=== PATIENT | male | born 1990 | race Caucasian/White ===

== ENCOUNTER 2016-07-17 18:38 | Emergency (ER) | payer SELFPAY ==
[2016-07-17 19:15] VITALS: BP 129/80; PULSE 82; TEMP 98.7; BMI 26.6
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
== END 2016-07-17 20:27 | disposition home or self-care (01) ==
LOC: FER 18:38
DX: S39.012A Strain of muscle, fascia and tendon of lower back, initial encounter (principal); X58.XXXA Exposure to other specified factors, initial encounter; Y93.9 Activity, unspecified; Y92.9 Unspecified place or not applicable; F17.210 Nicotine dependence, cigarettes, uncomplicated; J45.909 Unspecified asthma, uncomplicated; Z87.442 Personal history of urinary calculi
CPT/HCPCS: 72100-TC; 99282-25

== ENCOUNTER 2018-12-11 04:43 | Emergency (ER) | payer OTHER ==
[2018-12-11 05:24] VITALS: TEMP 98.2; BMI 27.3
[2018-12-11] MEDS ORDERED: IBUPROFEN 600 MG TABLET (FP) PO ONE ×2 (06:23→06:25)
[2018-12-11] MEDS ORDERED: METHOCARBAMOL 500 MG TABLET PO ONE (06:23)
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
[2018-12-11] MEDS ORDERED: METHOCARBAMOL 500 MG TABLET ONE (06:25)
[2018-12-11 06:33] VITALS: BP 115/64; PULSE 86
== END 2018-12-11 06:30 | disposition home or self-care (01) ==
LOC: JER 04:43
DX: M54.2 Cervicalgia (principal); M54.5 Low back pain; M25.512 Pain in left shoulder; M25.561 Pain in right knee; V53.5XXA Driver of pick-up truck or van injured in collision with car, pick-up truck or van in traffic accident, initial encounter; Y92.488 Other paved roadways as the place of occurrence of the external cause; Y93.89 Activity, other specified; Y99.8 Other external cause status
CPT/HCPCS: 99282-25

== ENCOUNTER 2019-03-29 18:54 | Emergency (ER) | payer OTHER ==
--- NOTE | 2019-03-29 19:12 | PDOC ---
Rapid Medical Evaluation Time Seen by Provider: 03/29/19 19:07 Medical Evaluation: Allergies Allergy/AdvReac Type Severity Reaction Status Date / Time No Known Allergies Allergy Verified 12/11/18 05:24 03/29/19 19:07 I have performed a brief in-person evaluation of this patient. The patient presents with a chief complaint of: R low back vs flank pain x 1 week, worse with movement and coughing, denies urinary sxs, remote hx of kidney stones. also c/o of L wrist pain Pertinent physical exam findings: no R CVAT I have ordered the following: nothing The patient will proceed to the ED for further evaluation. Discharge Disposition - Diagnosis Back pain, Wrist pain, left - Referrals - Patient Instructions - Post Discharge Activity
[2019-03-29 19:13] VITALS: BP 128/75; PULSE 98; TEMP 97.5; BMI 30.7
--- NOTE | 2019-03-29 20:10 | PDOC ---
History of Present Illness - General Chief Complaint: Pain, Acute Stated Complaint: R/SIDED BACK PAIN/L/WRIST/INJURY Time Seen by Provider: 03/29/19 19:07 - History of Present Illness Initial Comments: 03/29/19 20:08 28-year-old male without comorbidities presents for evaluation of left wrist pain after a fall 2 weeks ago and right-sided flank pain and concern for kidney stones as he suffered them passed no systemic symptoms no dysuria Past History - Past Medical History Allergies/Adverse Reactions: Allergies Allergy/AdvReac Type Severity Reaction Status Date / Time No Known Allergies Allergy Verified 12/11/18 05:24 Home Medications: Ambulatory Orders No Home Medications 0 dose .ROUTE UTDICT 10/18/12 Ibuprofen [Motrin -] 600 mg PO TID #21 tablet 12/11/18 Methocarbamol [Robaxin -] 500 mg PO TID #21 tablet 12/11/18 Asthma: Yes COPD: No Kidney Stones: Yes - Immunization History Immunization Up to Date: Yes - Psycho Social/Smoking Cessation Hx Smoking Status: Yes Smoking History: Never smoked Have you smoked in the past 12 months: No Number of Cigarettes Smoked Daily: 2 Information on smoking cessation initiated: No 'Breaking Loose' booklet given: 07/17/16 Hx Alcohol Use: No Drug/Substance Use Hx: No Substance Use Type: Marijuana Review of Systems - Review of Systems Constitutional: No: Fever Musculoskeletal: Yes: Joint Pain *Physical Exam - Vital Signs Last Vital Signs Temp Pulse Resp BP Pulse Ox 97.5 F L 98 H 20 128/75 98 03/29/19 19:08 03/29/19 19:08 03/29/19 19:08 03/29/19 19:08 03/29/19 19:08 - Physical Exam 03/29/19 20:08 GENERAL: The patient is awake, alert, and fully oriented, in no acute distress. HEAD: Normal with no signs of trauma. EYES: sclera anicteric, conjunctiva clear. ENT: Ears normal tympanic membranes normal oropharynx clear uvula midline NECK: Normal range of motion LUNGS: Breath sounds equal, clear to auscultation bilaterally. No wheezes, and no crackles. HEART: S1 and S2 without murmur, rub or gallop. ABDOMEN: Soft, nontender, normoactive bowel sounds. No guarding, no rebound. No masses. No CVA tenderness EXTREMITIES: Normal range of motion, no edema. No clubbing or cyanosis. No cords, erythema, or tenderness. NEUROLOGICAL: Cranial nerves II through XII grossly intact. Normal speech, normal gait. PSYCH: Normal mood, normal affect. SKIN: Warm, Dry, normal turgor, no rashes or lesions noted. Left foot skin color temperature normal full range of motion in all planes of the wrist elbow forearm and fingers. No tenderness about the distal radius snuffbox distal ulna. Mild tenderness about the area of the TFCC. Neurovascular intact no gross sensorimotor deficits Medical Decision Making - Medical Decision Making 03/29/19 20:09 Resplinted follow-up with hand surgery suspected TFCC tear, concern for kidney stones no clinical indication for CAT scan today follow-up with urology Discharge - Discharge Information Problems reviewed: Yes Clinical Impression/Diagnosis: Back pain, Wrist pain, left Condition: Stable Disposition: HOME - Admission No - Follow up/Referral Referrals: Vandana Wolf MD [Primary Care Provider] - Gianfranco Horne MD [Staff Physician] - Demario Rice MD [Staff Physician] - - Patient Discharge Instructions Additional Instructions: Avoid heavy lifting with your wrist pain. Please without fail follow-up with orthopedic surgery in 2 to 3 days for further evaluation and treatment options. And follow-up with urology for concern of kidney stones. Both follow-up should be done within the next 2 to 3 days. - Post Discharge Activity
== END 2019-03-29 20:31 | disposition home or self-care (01) ==
LOC: JERFT 18:54
DX: M25.532 Pain in left wrist (principal); M54.9 Dorsalgia, unspecified; Z72.0 Tobacco use; J45.909 Unspecified asthma, uncomplicated
CPT/HCPCS: 99281-25

== ENCOUNTER 2019-11-07 17:57 | Emergency (ER) | payer OTHER ==
[2019-11-07] MEDS ORDERED: IBUPROFEN 600 MG TABLET (FP) PO ONE ×2 (18:06→18:38)
--- NOTE | 2019-11-07 18:06 | PDOC ---
Rapid Medical Evaluation Chief Complaint: Injury Time Seen by Provider: 11/07/19 18:04 Medical Evaluation: Allergies Allergy/AdvReac Type Severity Reaction Status Date / Time No Known Allergies Allergy Verified 12/11/18 05:24 11/07/19 18:04 Pt presents with R elbow pain after falling on the arm one week ago. Pt is R hand dominant Exam: TTP of the medial epicondyle Orders: x-ray, motrin Pt to proceed to the ER for further evaluation Discharge Disposition - Diagnosis Elbow pain, right - Referrals - Patient Instructions - Post Discharge Activity
[2019-11-07 18:08] VITALS: BP 129/78; PULSE 92; TEMP 98.5; BMI 27.4
--- NOTE | 2019-11-07 18:44 | PDOC ---
History of Present Illness - General Chief Complaint: Injury Stated Complaint: INJURY/ELBOW/RADIATING TO ENTIRE ARM Time Seen by Provider: 11/07/19 18:04 History Source: Patient Exam Limitations: No Limitations - History of Present Illness Initial Comments: 11/07/19 18:41 HISTORY OF PRESENT ILLNESS: 29-year-old male denies medical history presents emergency department for evaluation of right elbow pain x1 week status post fall onto elbow. 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 Patient reports has been taking [id number] pain medication as well as ice but reports when he sleeps on his elbow he has increased pain. Patient is concerned for prolonged nerve damage if not treated. No recent travel or sick contacts. PAST MEDICAL HISTORY: Denies past medical history SURGICAL HISTORY: Denies ALLERGIES: No known drug allergies REVIEW OF SYSTEMS General/Constitutional: Denies fever or chills. Denies weakness, weight change. HEENT: Denies change in vision. Denies ear pain or discharge. Denies sore throat. Cardiovascular: Denies chest pain or shortness of breath. Respiratory: Denies cough, wheezing, or hemoptysis. Gastrointestinal: Denies nausea, vomiting, diarrhea or constipation. Denies rectal bleeding. Genitourinary: Denies dysuria, frequency, or change in urination. Musculoskeletal: See HPI Skin and breasts: Denies rash or easy bruising. Neurologic: Denies headache, vertigo, loss of consciousness, or loss of sensation. Psychiatric: Denies depression or anxiety. Endocrine: Denies increased thirst. Denies abnormal weight change. Hematologic/Lymphatic: Denies anemia, easy bleeding, or history of blood clots. Allergic/Immunologic: Denies hives or skin allergy. Denies latex allergy. PHYSICAL EXAM General Appearance: Well-appearing, appropriately dressed. No apparent distress, no intoxication. Vascular Pulses: Radial (R): 2+, radial (L): 2+ Musculoskeletal/Extremities: Normal inspection. FROM of all extremities with pronation and supination of the right wrist, normal capillary refill. Tenderness over the right medial epicondyles. No deformity, crepitus, step-off present upon palpation. Neurovascularly intact. Integumentary: Appropriate color, dry, warm. 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 Fully oriented, alert. Appropriate mood/affect. Motor strength 5/5. No appreciable EOM palsy, facial droop or sensory deficit. Past History - Medical History Allergies/Adverse Reactions: Allergies Allergy/AdvReac Type Severity Reaction Status Date / Time No Known Allergies Allergy Verified 12/11/18 05:24 Home Medications: Ambulatory Orders No Home Medications 0 dose .ROUTE UTDICT 10/18/12 Ibuprofen [Motrin -] 600 mg PO TID #21 tablet 12/11/18 Methocarbamol [Robaxin -] 500 mg PO TID #21 tablet 12/11/18 Asthma: Yes COPD: No Kidney Stones: Yes - Immunization History Immunization Up to Date: Yes - Psycho-Social/Smoking History Smoking Status: Yes Smoking History: Never smoked Have you smoked in the past 12 months: No Number of Cigarettes Smoked Daily: 2 Information on smoking cessation initiated: No 'Breaking Loose' booklet given: 07/17/16 - Substance Abuse Hx (Audit-C & DAST Scrn) How often the patient has a drink containing alcohol: Never Score: In Men: 4 or > Positive; In Women: 3 or > Positive: 0 Screen Result (Pos requires Nsg. Audit-10AR): Negative In the last yr the pt used illegal drug/Rx for NonMed reason: No Score: Yes response is considered Positive: 0 Screen Result (Positive result requires Nsg. DAST-10): Negative *Physical Exam - Vital Signs Last Vital Signs Temp Pulse Resp BP Pulse Ox 98.5 F 92 H 17 129/78 99 11/07/19 18:04 11/07/19 18:04 11/07/19 18:04 11/07/19 18:04 11/07/19 18:04 Medical Decision Making - Medical Decision Making 11/07/19 18:43 A/P: 29-year-old male with right elbow pain status post fall 1 week ago Physical exam notable for tenderness over the right medial epicondyles. Full flexion-extension of the elbow noted without difficulty. Able to fully pronate and supinate the wrist passively. Neurovascularly intact Orders per [facility] X-rays as read by me: No acute fractures or dislocations are present. Discharge home with orthopedic follow-up. I discussed the physical exam findings, ancillary test results and final diagnoses with the patient. I answered all of the patient's questions. The patient was satisfied with the care received and felt comfortable with the discharge plan and treatment plan. The patient will call their primary care physician within 24 hours to arrange follow-up and will return to the Emergency Department with any new, persistent or worsening symptoms. Portions of this note have been documented using voice recognition software. As a result, errors may occur in the rounding machine tender process. Effort has been made to correct all grammatical and rounding machine tender error, but some may have been missed which may produce sporadic inaccurate rounding machine tender or nonsensical phrases. Discharge - Discharge Information Problems reviewed: Yes Clinical Impression/Diagnosis: Elbow pain, right Condition: Stable Disposition: HOME - Admission No - Follow up/Referral Referrals: Vandana Wolf MD [Primary Care Provider] - Demario Rice MD [Staff Physician] - - Patient Discharge Instructions Additional Instructions: [email or web address] You be given a referral for an orthopedist. Call to schedule appointment for reevaluation of your pain. Your emergency department visit is incomplete until you follow-up with your regular doctor. Take Tylenol 2-500 mg tablets every 6 hours as needed for pain. Take Motrin 3-200 mg tablets every 6 hours as needed for pain. These medications do not require a prescription as they are [id number]. Apply ice to affected areas to help relieve pain. Do not leave ice on for more than 20 minutes at a time. Return to the emergency department for any new or worsening symptoms. Thank you very much for choosing us to provide your emergent health care needs. - Post Discharge Activity Work/Back to School Note: Back to Work
== END 2019-11-07 19:06 | disposition home or self-care (01) ==
LOC: JER 17:57 → JERFT 17:57
DX: M25.521 Pain in right elbow (principal)
CPT/HCPCS: 73070-TC-RT-FY; 99283-25

== ENCOUNTER 2022-08-31 22:54 | Emergency (ER) | payer OTHER ==
[~2022-08-31 22:54] MED LIST: LIDOCAINE PATCH REMOVAL MC SCH
[2022-08-31 23:00] VITALS: BP 146/91; PULSE 102; RESP 18; TEMP 99.1; BMI 26.6
[2022-08-31] MEDS ORDERED: IBUPROFEN 600 MG TABLET (FP) PO ONE ×2 (23:28→23:33)
[2022-08-31] MEDS ORDERED: LIDOCAINE 5% TOPICAL PATCH TP ONE (23:58)
[2022-08-31] MEDS ORDERED: LIDOCAINE 5% TOPICAL PATCH ONE (23:59)
== END 2022-09-01 00:13 | disposition home or self-care (01) ==
LOC: FER 22:54
DX: M54.50 Low back pain, unspecified (principal); M54.2 Cervicalgia; M25.511 Pain in right shoulder; M62.830 Muscle spasm of back; S13.4XXA Sprain of ligaments of cervical spine, initial encounter; V43.52XA Car driver injured in collision with other type car in traffic accident, initial encounter; Y93.I9 Activity, other involving external motion
CPT/HCPCS: 72040-TC; 72100-TC-FY; 99283-25

== ENCOUNTER 2023-04-13 06:57 | Emergency (ER) | payer OTHER ==
[2023-04-13 07:43] VITALS: TEMP 98; BMI 27.0
[2023-04-13] MEDS ORDERED: FENTANYL CITRATE/PF 50 MCG/ML VIAL ONE (07:48)
[2023-04-13 08:28] LABS: BASO % 1.3 % (0-2.0); EOS % 5.5 % (0-4.5); HEMATOCRIT 43.5 % (35.4-49); HEMOGLOBIN 14.8 GM/dL (11.7-16.9); LYMPH % 21.9 % (8-40); MCH 30.6 pg (25.7-33.7); MCHC 34.1 g/dl (32.0-35.9); MEAN CELL VOLUME 89.7 fl (80-96); MEAN PLT VOLUME 6.9 fl (7.5-11.1); MONO % 7.8 % (3.8-10.2); NEUT % 63.5 % (42.8-82.8); PLATELET COUNT 297 10^3/uL (134-434); RBC 4.85 M/mm3 (4.00-5.60); RDW 12.5 % (11.9-15.9); WHITE BLOOD COUNT 9.9 K/mm3 (4.0-10.0)
[2023-04-13 08:33] LABS: INR 1.01 (0.83-1.09); PROTHROMBIN TIME (PATIENT) 11.7 SEC (9.7-13.0)
[2023-04-13 08:36] LABS: ACTIVATED PTT 27.4 SECONDS (25.2-36.5)
[2023-04-13 09:12] LABS: POTASSIUM 3.6 mmol/L (3.5-5.1)
[2023-04-13 09:14] LABS: CALCIUM 8.8 mg/dL (8.5-10.1)
[2023-04-13 09:15] LABS: ALBUMIN 4.1 g/dl (3.4-5.0); BLOOD UREA NITROGEN 14.3 mg/dL (7-18)
[2023-04-13 09:18] LABS: CREATININE 0.8 mg/dL (0.55-1.3)
[2023-04-13 09:19] LABS: BILIRUBIN,TOTAL 1.2 mg/dL (0.2-1); TOT PROT 7.9 g/dl (6.4-8.2)
[2023-04-13] MEDS ORDERED: morphine CARPU-JECT 4 MG/1 ML DISP.SYRIN IVPUSH ONE (09:39)
[2023-04-13] MEDS ORDERED: morphine SULFATE 4 MG/ML VIAL ONE (09:42)
[2023-04-13] MEDS ORDERED: ONDANSETRON 4 MG/2 ML VIAL IVPUSH ONE (10:08)
[2023-04-13] MEDS ORDERED: ONDANSETRON 4 MG/2 ML VIAL ONE ×2 (10:09→10:17)
[2023-04-13 10:25] VITALS: PULSE 92; RESP 17
[2023-04-13 11:28] VITALS: BP 126/93
== END 2023-04-13 10:27 | disposition short-term general hospital (02) ==
LOC: JER 06:57
PROC: 3E033GC Introduction of Other Therapeutic Substance into Peripheral Vein, Percutaneous Approach (ICD-10-PCS; principal; 2023-04-13)
PROC: 3E033GC Introduction of Other Therapeutic Substance into Peripheral Vein, Percutaneous Approach (ICD-10-PCS; 2023-04-13)
PROC: 3E033GC Introduction of Other Therapeutic Substance into Peripheral Vein, Percutaneous Approach (ICD-10-PCS; 2023-04-13)
DX: S71.101A Unspecified open wound, right thigh, initial encounter (principal); S31.609A Unspecified open wound of abdominal wall, unspecified quadrant with penetration into peritoneal cavity, initial encounter; W34.00XA Accidental discharge from unspecified firearms or gun, initial encounter; U07.1 COVID-19
CPT/HCPCS: 0241U-QW; 36415; 72131-TC; 75635-TC; 80053; 80307; 85025; 85610; 85730; 86850; 86900; 86901; 93005; 93010; 99285-25